=== PATIENT | female | born 1995 | race Caucasian/White ===

== ENCOUNTER 2025-03-22 18:12 | Emergency (ER) | payer OTHER ==
[2025-03-22 18:21] VITALS: BP 108/69; PULSE 90; RESP 18; TEMP 98.3; BMI 24.3
[2025-03-22] MEDS ORDERED: TETRACAINE 0.5% OPHTH SOLN 2 ML BOTTLE ONE (19:29)
[2025-03-22] MEDS ORDERED: FLUORESCEIN NA 1 EA STRIP ONE (19:29)
[2025-03-22] MEDS: TETRACAINE 0.5% OPHTH SOLN 2 ML BOTTLE OD ONE (19:33)
[2025-03-22] MEDS: FLUORESCEIN NA 1 EA STRIP OD ONE (19:34)
== END 2025-03-22 20:50 | disposition home or self-care (01) ==
LOC: JER 18:12
DX: S06.0X0A Concussion without loss of consciousness, initial encounter (principal); S00.83XA Contusion of other part of head, initial encounter; S05.12XA Contusion of eyeball and orbital tissues, left eye, initial encounter; H11.32 Conjunctival hemorrhage, left eye; W21.07XA Struck by softball, initial encounter; Y93.64 Activity, baseball
CPT/HCPCS: 70450-TC; 70480-TC; 99284-25